=== PATIENT | female | born 1945 | race Caucasian/White ===

== ENCOUNTER 2020-06-22 13:53 | Emergency (ER) | payer MEDICARE ==
[~2020-06-22] VITALS: Ht 157.5 cm; Wt 56.7 kg
[2020-06-22 14:02] VITALS: BP 117/75
[2020-06-22] MEDS ORDERED: BACITRACIN ZINC OINT PACKET 1 EA PACKET TP ONE ×2 (14:24→14:30)
== END 2020-06-22 14:44 | disposition home or self-care (01) ==
LOC: ER 13:58
DX: T22.211D Burn of second degree of right forearm, subsequent encounter (principal); I10 Essential (primary) hypertension; X08.8XXD Exposure to other specified smoke, fire and flames, subsequent encounter